=== PATIENT | male | born 1975 | race Caucasian/White ===

== ENCOUNTER → 2020-12-09 | Outpatient (CLI) | payer MEDICARE ==
[~2020-12-09] MED LIST: OXYC-325 PO
== END ==
LOC: LAB 11:00
PROVIDERS: ATTEND Surgery
DX: Z01.812 Encounter for preprocedural laboratory examination (principal); Z20.822 Contact with and (suspected) exposure to COVID-19; K40.91 Unilateral inguinal hernia, without obstruction or gangrene, recurrent
CPT/HCPCS: U0003; U0005

== ENCOUNTER 2020-12-10 06:59 | Day surgery (SDC) | payer MEDICARE, MEDICAID ==
[~2020-12-10] VITALS: Ht 180.3 cm; Wt 76.5 kg
[~2020-12-10 06:59] MED LIST changes: +HYDROmorphone 2 MG/ML VIAL IVP PRN; +IV RINGERS,LACTATED 1000ML 1,000 ML IV SCH; +MORPHINE SULFATE 2 MG/ML VIAL. IVP PRN; -OXYC-325 PO; +PROCHLORPERAZINE 10 MG/2 ML VIAL. IVP PRN; +ceFAZolin SODIUM IV Push 1 GM VIAL. IVP PRN; +fentaNYL PF VIAL 100 MCG/2 ML VIAL IVP PRN
[2020-12-10] MEDS ORDERED: BUPIVACAINE-EPI 0.25% 30 ML VIAL KIT. ONE (07:01)
[2020-12-10] MEDS ORDERED: MINERAL OIL for SURGERY 10 ML VIAL. MC ONE (07:02)
[2020-12-10] MEDS ORDERED: LIDOCAINE 2% PF 5 ML VIAL. ONE (07:17)
[2020-12-10] MEDS ORDERED: PROPOFOL 10 MG/ML (20ML) VIAL. IV ONE (07:17)
[2020-12-10] MEDS ORDERED: fentaNYL PF VIAL 250 MCG/5 ML VIAL ONE (07:18)
[2020-12-10] MEDS ORDERED: ROCURONIUM 50 MG/5 ML VIAL. ONE (07:18)
[2020-12-10] MEDS ORDERED: MIDAZOLAM HCL/PF 2 MG/2 ML VIAL. ONE (07:18)
[2020-12-10 07:23] VITALS: BP 110/75
[2020-12-10] MEDS ORDERED: ACETAMINOPHEN 500 MG TABLET PO ONE (07:30)
[2020-12-10] MEDS ORDERED: ONDANSETRON PF 4 MG/2 ML VIAL. ONE (08:24)
[2020-12-10] MEDS ORDERED: DEXAMETHASONE SOD PHOS 4 MG/ML VIAL ONE (08:24)
[2020-12-10] MEDS ORDERED: GLYCOPYRROLATE 1 MG/5 ML VIAL. ONE (08:44)
[2020-12-10] MEDS ORDERED: ATROPINE 1 MG/10 ML DISP.SYRINGE. ONE (08:47)
[2020-12-10] MEDS ORDERED: NEOSTIGMINE METHYLSULFATE 5 MG/5 ML SYRINGE. ONE (08:49)
[2020-12-10] MEDS ORDERED: SEVOFLURANE 61 TO 120 MINUTES. IH ONE (09:12)
[2020-12-10] MEDS ORDERED: KETOROLAC 30 MG/ML VIAL. ONE (09:23)
--- NOTE | 2020-12-10 09:34 | PDOC4 ---
Operative Note Operative Note Date: December 10, 2020 at 932 Preoperative diagnosis: Recurrent right inguinal hernia Postoperative diagnosis: Same Procedure: Robotic assisted laparoscopic right inguinal hernia repair with mesh Surgeon: German Dictation: Patient is a 45-year-old gentleman who had a anterior approach hernia repair several years years ago comes in with complaints now a bulge again in his right groin ultrasound showing a hernia. Procedure of robotic assisted laparos copic right inguinal hernia repair with mesh was explained to the patient detail risk benefits were also discussed including bleeding infection injury to intra- abdominal contents possible necessitating further open operations alternatives to this procedure also discussed with the patient who seemed to understand and gave a verbal written consent to have the procedure performed. Patient was taken to the operating room placed in the supine position general anesthesia was initiated once patient was sleeping intubated his abdomen was prepped and draped usual sterile fashion using ChloraPrep. An area just above the umbilicus was injected with quarter percent Marcaine with epinephrine incision was made with a blade scalpel and varies needle was placed within the abdomen creating pneumoperitoneum once this was complete 8 mm ventral port was placed in a da Nica camera's placed within the abdomen which was inspected it was noted there was a small hernia in the right inguinal area 8 mm da Nica port was placed in the left midabdomen and an 8 mm da Nica port was placed in the right midabdomen the da Nica robot was brought and docked all port sites surgeon went to the robotic console using a grasper and Endo Giana scissors the peritoneum over the right side was incised and a window propagated inferiorly reducing the hernia sac and contents was noted the hernia was a direct inguinal hernia and the previously repaired hernia was intact. A large Bard 3D max mesh for the right side was placed over the hernia defect and the peritoneum was closed over the mesh with a running 2 OV lock absorbable suture. Suture was moved from the abdomen the da Nica robot undocked from all port sites all port sites removed the pneumoperitoneum reduced all port sites were closed with 4 subcuticular Monocryl Mastisol Steri-Strips and island dressings were applied patient was awakened and extubated in the operating room taken to recovery in stable condition all sponge instrument needle counts listed as correct estimated blood loss 5 mL DU MONZON MD Dec 10, 2020 09:34
--- NOTE | 2020-12-10 09:36 | DISCH ---
DISCHARGE INSTRUCTIONS Condition on Discharge Condition on Discharge: Stable Activity After Discharge Activity Instructions for Disc: Avoid exertion Other activity instructions: No lifting more than 20 pounds for 2 weeks Diet after Discharge Diet after Discharge: Regular Wound Incision Care Other wound/incision instructi: Sneha shower in 24 hours Contacting the [facility] after DC Call your doctor for: If your condition worsens Follow-Up Follow up with: Dr. Monzon in 2 weeks DU MONZON MD Dec 10, 2020 09:36
[2020-12-10] MEDS ORDERED: OXYC-325 PO (10:09)
[2020-12-10] MEDS ORDERED: fentaNYL PF VIAL 100 MCG/2 ML VIAL ONE (10:45)
[2020-12-10] MEDS: fentaNYL PF VIAL 100 MCG/2 ML VIAL IVP PRN ×2 (10:51→11:08)
[2020-12-10 10:57] VITALS: BP 109/72
== END 2020-12-10 11:34 | disposition home or self-care (01) ==
LOC: SURG 06:59 → EDUNIT# 08:00 → SURG 11:34
PROVIDERS: ATTEND Surgery
DX: K40.91 Unilateral inguinal hernia, without obstruction or gangrene, recurrent (principal); F32.9 Major depressive disorder, single episode, unspecified; Z87.891 Personal history of nicotine dependence; Z79.899 Other long term (current) drug therapy; Z98.890 Other specified postprocedural states; Z88.8 Allergy status to other drugs, medicaments and biological substances; Z72.89 Other problems related to lifestyle
CPT/HCPCS: 49651; A4215; A4364; A4930; A6219; C1781; J0461; J0690; J1100; J1885; J2250; J2405; J2704; J2710; J3010; J3490; A4657